=== PATIENT | male | born 1960 | race Hispanic/Latino ===

== ENCOUNTER 2017-12-10 13:58 | Emergency (ER) | payer MEDICARE ==
[2017-12-10 16:22] LABS: #Basophils 0.1 thou/uL (0.0-0.2); #Eosinphils 0.2 thou/uL (0.0-0.7); #Lymphocytes 1.5 thou/uL (1.20-3.40); #Monocytes 0.6 thou/uL (0.11-0.59); #Neutrophils 4.6 thou/uL (1.40-6.50); %Basophils 0.9 % (0.0-1.0); %Eosinophils 2.2 % (0.0-10.0); %Lymphocytes 21.9 % (21.0-51.0); %Monocytes 9.1 % (0.0-10.0); %Neutrophils 65.9 % (42.0-75.0); Hemoglobin 14.4 g/dL (14.0-18.0); Mean Corpuscular HGB CONC 34.5 g/dL (32.0-36.0); Mean Corpuscular Hemoglobin 29.2 pg (27.0-31.0); Mean Corpuscular Volume 84.5 fl (80.0-94.0); Mean Platelet Volume 9.2 fL (7.4-10.4); Platelet Count 180 thou/uL (130-400); RBC Distribution Width 13.3 % (11.5-14.5); Red Blood Cell (RBC) Count 4.94 mill/uL (4.70-6.10)
[2017-12-10 16:29] LABS: INR-International Normal Ratio 3.9; PTT 45.6 SEC (22.9-36.1); Prothrombin Time 39.9 SEC (12.0-14.7)
[2017-12-10 16:50] LABS: Anion Gap 11 mmol/L (10-20); BUN (Urea Nitrogen) 13 mg/dL (8.4-25.7); Calc. Creatinine Clearance 0 mL/min (70-130); Calcium 9.4 mg/dL (7.8-10.44); Carbon Dioxide 24 mmol/L (22-29); Chloride 105 mmol/L (98-107); Estimated GFR-MDRD Greater than 90; Glucose 99 mg/dL (70-105); Potassium 4.1 mmol/L (3.5-5.1); Sodium 136 mmol/L (136-145)
--- NOTE | 2017-12-10 17:39 | ULT ---
ULTRASOUND WITH DOPPLER DUPLEX VENOUS LOWER EXTREMITY LEFT CPT: 34645 ICD-10-PCS: B54D 12/10/17 HISTORY: Pain and edema/ecchymosis. TECHNIQUE: Color flow Doppler, spectral waveform analysis of pulsed Doppler, and case-scale imaging with sergo angelic and augmentation, were used to evaluate the left common femoral, femoral, popliteal, posterior t ibial, and superficial femoral, veins; and the proximal portions of the profunda femoral and greater saphenous, veins. FINDINGS: There is appropriate flow within the imaged deep vein system of the left lower extremity. [employer] reports limited compressibility at the site of the distal left femoral vein, although no filling def ect is seen on the doppler flow images. There is soft tissue edema. No localizable fluid collection identified. IMPRESSION: No definite evidence for DVT. Limited compressibility of the distal left femoral vein as above. No focal fluid collection. There is soft tissue edema. Correlate clinically. POS: TPC
== END 2017-12-10 17:40 | disposition home or self-care (01) ==
LOC: ERS 13:58
DX: S86.912A Strain of unspecified muscle(s) and tendon(s) at lower leg level, left leg, initial encounter (principal); R79.1 Abnormal coagulation profile; I48.91 Unspecified atrial fibrillation; Z79.84 Long term (current) use of oral hypoglycemic drugs; Z79.899 Other long term (current) drug therapy; Z79.01 Long term (current) use of anticoagulants; X58.XXXA Exposure to other specified factors, initial encounter
CPT/HCPCS: 36415; 80048; 85025; 85610; 85730

== ENCOUNTER 2018-05-04 13:57 | Inpatient (IN) | payer MEDICARE ==
[2018-05-04] MEDS ORDERED: Nitroglycerin 0.4 MG TAB (25 Tab Bottle) ONE (14:30)
[2018-05-04 14:31] LABS: #Eosinphils 0.1 thou/uL (0.0-0.7); #Lymphocytes 1.3 thou/uL (1.20-3.40); #Monocytes 0.5 thou/uL (0.11-0.59); #Neutrophils 3.9 thou/uL (1.40-6.50); %Basophils 0.8 % (0.0-1.0); %Eosinophils 1.6 % (0.0-10.0); %Lymphocytes 22.3 % (21.0-51.0); %Monocytes 8.3 % (0.0-10.0); Mean Corpuscular HGB CONC 34.7 g/dL (32.0-36.0); Mean Corpuscular Hemoglobin 28.6 pg (27.0-31.0); Mean Corpuscular Volume 82.4 fl (80.0-94.0); Platelet Count 161 thou/uL (130-400); RBC Distribution Width 12.8 % (11.5-14.5); Red Blood Cell (RBC) Count 5.26 mill/uL (4.70-6.10); White Blood Cell (WBC) Count 5.8 thou/uL (4.8-10.8)
[2018-05-04 14:31] LABS: Bilirubin Negative (Negative); Blood, Urine Negative (Negative); Clarity CLEAR (Clear); Glucose, Urine (Dipstick) 250 mg/dL (Negative); Leukocyte Negative (Negative); Nitrite Negative (Negative); Protein, Urine (Dipstick) Negative (Neg-Trace); Specific Gravity, Urine 1.018 (1.002-1.036)
[2018-05-04 14:58] LABS: ALT (SGPT) 81 U/L (8-55); AST (SGOT) 63 U/L (5-34); Albumin 4.3 g/dL (3.5-5.0); Alkaline Phosphatase 94 U/L (40-150); Anion Gap 15 mmol/L (10-20); BUN (Urea Nitrogen) 18 mg/dL (8.4-25.7); Bilirubin, Total 0.8 mg/dL (0.2-1.2); CK (CPK) 125 U/L (30-200); Calc. Creatinine Clearance 0 mL/min (70-130); Calcium 9.7 mg/dL (7.8-10.44); Carbon Dioxide 22 mmol/L (22-29); Chloride 105 mmol/L (98-107); Estimated GFR-MDRD Greater than 90; Globulin 3.1 g/dL (2.4-3.5); Glucose 144 mg/dL (70-105); Lipase 28 U/L (8-78); Potassium 4.1 mmol/L (3.5-5.1); Protein, Total 7.4 g/dL (6.0-8.3); Sodium 138 mmol/L (136-145)
[2018-05-04 14:59] LABS: Troponin I Less than 0.010 ng/mL (< 0.028)
--- NOTE | 2018-05-04 15:00 | RAD ---
PORTABLE CHEST: HISTORY: Chest, back, and left shoulder pain. COMPARISON: 02/26/11 exam. FINDINGS: Heart size is within normal limits. Mediastinal structures appear unremarkable. The lungs are clear of infiltrates. IMPRESSION: No active intrathoracic disease. POS: H
[2018-05-04 15:21] LABS: INR-International Normal Ratio 2.6; PTT 37.9 SEC (22.9-36.1)
[2018-05-04 17:20] VITALS: BMI 31.7
[2018-05-04 17:41] LABS: Troponin I Less than 0.010 ng/mL (< 0.028)
[2018-05-04] MEDS: Sodium Chloride 0.9% 1,000 ML IV SCH (18:19)
[2018-05-04] MEDS ORDERED: HumaLOG 300 UNITS/3 ML VIAL SC PRN (19:38)
[2018-05-04 20:26] LABS: Troponin I Less than 0.010 ng/mL (< 0.028)
[2018-05-04] MEDS: Metoprolol Tartrate 25 MG TAB PO SCH (21:18)
[2018-05-04] MEDS: Simvastatin 40 MG TAB PO SCH (21:18)
--- NOTE | 2018-05-05 04:30 | HP ---
PRIMARY CARE PHYSICIAN: Dr. Negro Guzman. CHIEF COMPLAINT: Episode of chest pain. HISTORY OF PRESENT ILLNESS: This is a 58-year-old male patient of Dr. Negro Guzman's with a history of type 2 diabetes, atrial fibrillation, hypertension, hyperlipidemia, who presented to the emergency department after an episode of chest pain and shortness of breath. As the patient states a s well as his that the patient has been in usual state of health. He was sitting at home, watch ing TV this afternoon about 01:30 when he jumped up to go to the bathroom with nausea and vomiting. He did throw up one time. The patient admitted for chest pain and shortness of breath. The cla ims that he was clammy. They called EMS. Once the paramedics arrived, they gave him a dose of nitro glycerin and his symptoms resolved spontaneously. He has not had any further symptoms since that amos e. Of note, he had a similar episode of chest pain in 01/2017. He was admitted at that time, he was seen by Cardiology as well. He ruled out for an LA at that time and had negative stress test and wa s discharged home in good condition. The patient is typically followed by Dr. Zamora and Dr. Haley for his atrial fibrillation. The and patient state that he is usually well controlled. Looking at his notes, he does not seem to be compliant with follow ups with Dr. Guzman as his last appointment was in 04/2017. However, the patient now feels like he is back at his baseline. He is being admitte d for further evaluation and risk stratification due to his episode of chest pain consistent with uns table angina and his noncompliance. PAST MEDICAL HISTORY: Type 2 diabetes, hypertension, hyperlipidemia, hearing loss, atrial fibrillati on/flutter was diagnosed in 2006. PAST SURGICAL HISTORY: 1. Appendectomy. 2. Cardiac ablation in 2010. 3. Cardiac catheterization in 2014. FAMILY HISTORY: Mother and father with diabetes and heart disease. SOCIAL HISTORY: He is , retired from [employer], now collecting disability due to hi s atrial fibrillation. He has 3 grandkids. He quit smoking over 20 years ago. MEDICATIONS: Lisinopril 10 mg daily, metformin 1000 mg b.i.d., metoprolol 25 mg b.i.d., simvastatin 40 mg daily, warfarin 4 mg every other day, 5 mg every other day. REVIEW OF SYSTEMS: As per the history of present illness, denies any recent fevers, chills, or recen t upper respiratory symptoms. HEENT: Denies headache, positive for hardness of hearing, which is ch ronic. Cardiovascular: As per the history of present illness, he denies any palpitations. Pulmonar y: Denies cough or shortness of breath at this time. Gastrointestinal: Nausea has resolved. No di arrhea, no constipation. Denies melena or hematochezia. Genitourinary: Denies dysuria or hematuria . Neurologic: Denies seizures, syncope. PHYSICAL EXAMINATION: VITAL SIGNS: Temperature 98.1, pulse of 65, respirations 16, blood pressure 134/65, pulse ox is 96% on room air. GENERAL: He is awake and alert, in no acute distress. HEENT: He is hard of hearing. Mucosa is moist. NECK: Supple. No JVD, no bruits. HEART: Regular rate and rhythm without murmurs. LUNGS: Clear bilaterally. ABDOMEN: Obese, soft, nontender, nondistended. No hepatosplenomegaly. EXTREMITIES: No clubbing, cyanosis, or edema. 2+ peripheral pulses bilaterally. NEUROLOGIC: Cranial nerves II through XII are grossly intact. LABORATORY AND X-RAY FINDINGS: Sodium 138, potassium 4.1, chloride 105, CO2 of 22, BUN and creatinin e 18 and 0.8. Serum glucose of 144. GFR greater than 90. AST and ALT are elevated at 63 and 81, al kaline phosphatase was normal. Cardiac enzymes are negative x3. Lipase of 28. INR 2.6. White bloo d cell count 5.8, hemoglobin and hematocrit 15 and 43.4, platelets of 161. Chest x-ray shows no acti ve disease. EKG reveals atrial fibrillation, rate controlled ventricular rate of 78. ASSESSMENT AND PLAN: This is a 58-year-old gentleman with atrial fibrillation on anticoagulation, ty pe 2 diabetes, hypertension, hyperlipidemia, now with episode of chest pain. Agree with admission to telemetry with rule-out myocardial infarction protocol. Consult Cardiology for further risk stratif ication for a repeat stress test versus cardiac catheterization. 1. Atrial fibrillation. Again, rate controlled. We will continue anticoagulation. 2. Type 2 diabetes. We will check A1c. Continue his oral meds at this time as well as insulin slid ing scale. 3. Transaminitis, likely secondary to fatty liver. We will check a liver ultrasound.
[2018-05-05] MEDS: Sodium Chloride 0.9% 1,000 ML IV SCH ×2 (05:08→13:56)
[2018-05-05 05:58] LABS: Cardiac Risk 4.6 (Less than 4.5)
[2018-05-05 06:05] LABS: ALT (SGPT) 60 U/L (8-55); AST (SGOT) 39 U/L (5-34); Albumin 3.6 g/dL (3.5-5.0); Alkaline Phosphatase 84 U/L (40-150); Bilirubin, Direct 0.2 mg/dL (0.1-0.3); Bilirubin, Total 0.6 mg/dL (0.2-1.2); Protein, Total 6.1 g/dL (6.0-8.3)
[2018-05-05 08:16] LABS: INR-International Normal Ratio 2.7; Prothrombin Time 30.2 SEC (12.0-14.7)
[2018-05-05] MEDS: metFORMIN 500 MG TAB PO SCH ×2 (08:18→16:00)
[2018-05-05] MEDS: Lisinopril 10 MG TAB PO SCH (08:18)
[2018-05-05] MEDS: Metoprolol Tartrate 25 MG TAB PO SCH ×2 (08:18→20:05)
[2018-05-05] MEDS: Niacin 500 MG TAB PO SCH (08:18)
--- NOTE | 2018-05-05 08:40 | PRG ---
DATE OF SERVICE: 05/05/2018 TIME: 08:00 a.m. SUBJECTIVE: The patient was admitted last night for acute onset of chest pain, which lasted several minutes while watching TV. He presented to the ER where he was given nitroglycerin and the chest matthew n was resolved. Since then he has had no recurrent chest pain. He is feeling much better at this ti me. It has been over a year since he has seen me in the office. He does have a history of diabetes, hypertension, hyperlipidemia as well as chronic atrial fibrillation. OBJECTIVE: VITAL SIGNS: Temperature 97.6, pulse 53, respirations 18, blood pressure 103/61, pulse ox 95, blood pressure 130/68. HEART: Irregular, rate controlled. LUNGS: Clear. ABDOMEN: Soft. EXTREMITIES: With no edema. LABORATORY DATA: Blood sugars 130, 114. Liver functions normal. Triglycerides 139. Cholesterol 15 6. Chest x-ray negative. ASSESSMENT: 1. Chest pain, rule out myocardial infarction. Cardiac enzymes negative. 2. Chronic atrial fibrillation, rate controlled. 3. Hypertension. 4. Hyperlipidemia. 5. Diabetes. PLAN: 1. Cardiolite stress test today. 2. Consult Dr. Zamora. 3. We will continue to follow.
--- NOTE | 2018-05-05 09:18 | ULT ---
SONOGRAM ABDOMEN COMPLETE: History: Abdominal pain. Abnormal liver function tests. FINDINGS: Gallbladder has a normal appearance. Common duct is 0.4 cm. Liver is diffusely echogenic. No focal ma ss or intrahepatic biliary dilatation. No free fluid. The spleen, kidneys, and visualized portions of the abdominal aorta and pancreas are unremarkable. IMPRESSION: 1. No evidence of gallstones or biliary obstruction. 2. Hepatosteatosis. POS: TPC
[2018-05-05] MEDS ORDERED: ADENOSINE 60 MG/20 ML VIAL ONE (12:10)
[2018-05-05] MEDS ORDERED: HumaLOG 300 UNITS/3 ML VIAL SC PRN (12:29)
--- NOTE | 2018-05-05 12:54 | NM ---
NUCLEAR MEDICINE CARDIAC PERFUSION EXAMINATION WITH EJECTION FRACTION: HISTORY: A 58-year-old male with chest pain. History of cardiac catheterization, status post ablation. COMPARISON: 02/09/2017 TECHNIQUE: A single day nuclear medicine cardiac perfusion examination was performed. Rest images were obtained using 10 millicuries of technetium 99m sestamibi. Stress images were obtained using 27 millicuries of technetium 99m and adenosine. FINDINGS: There is a small sized, moderate intensity reversible perfusion defect of the anterior wall. No othe r reversible perfusion defects are seen. Gated images show normal wall motion with an ejection fract ion of greater than 70%. EDV is 91 mL. LHR is 0.4. TID is 1.2. IMPRESSION: Possible anterior wall ischemia. POS: EITAN
[2018-05-05] MEDS ORDERED: Phytonadione 10 MG/ML AMP PO SCH (15:45)
[2018-05-05] MEDS: Aspirin 81 mg Enteric Coated Tablet PO SCH (16:02)
[2018-05-05] MEDS ORDERED: Warfarin Sodium 5 MG TAB PO SCH (17:00)
[2018-05-05] MEDS ORDERED: Enoxaparin Sodium 60 MG/0.6 ML SYRINGE SC SCH ×2 (20:00→21:00)
[2018-05-05] MEDS: Simvastatin 40 MG TAB PO SCH (20:05)
--- NOTE | 2018-05-05 20:16 | CON ---
DATE OF CONSULTATION: 05/05/2018 REASON FOR CONSULTATION: Chest pain and abnormal stress test. HISTORY OF PRESENT ILLNESS: Mr. Olivares is a 58-year-old gentleman, a patient of Dr. Francisco Joshi, admitted to the hospital yesterday with chest pain. Mr. Olivares describes the pain yesterday is sharp, it is in the midsternal area and slightly to the left of the mid sternum and he came here. The pain was ultimately relieved with medications here. The patient's cardiac enzymes were negative. Stress test showed some evidence of ischemia. PAST MEDICAL HISTORY: History of supraventricular tachycardia, also has a history of atrial fibrilla tion, is on Coumadin. Also has history of hypercholesterolemia and hypertension. MEDICATIONS PRIOR TO ADMISSION: 1. Lisinopril 10 mg a day. 2. Metformin. 3. Metoprolol 100 mg a day. 4. Simvastatin. 5. Coumadin. ALLERGIES: None known. SOCIAL HISTORY: No alcohol or tobacco. He has a very supportive . REVIEW OF SYSTEMS: The patient is very hard of hearing, but the review of systems appears to be the following. Constitutional: No significant weight gain or loss. Vision: No changes. Hearing: No changes. Pulmonary: No cough or wheezing. Gastrointestinal: No nausea, vomiting, or diarrhea. Sk in: No rashes. Neurologic: No unilateral weakness or numbness. Psychiatric: No unusual depressio n or anxiety. Hematologic: No unusual bruising. Genitourinary: No burning with urination. The patient is very hard of hearing and it is a chronic problem. PHYSICAL EXAMINATION: GENERAL: This is a pleasant 58-year-old gentleman in no distress. VITAL SIGNS: Blood pressure is 125/74, pulse 70 and it is regular. HEENT: Eyes: Sclerae nonicteric. Mouth: Mucous membranes moist. NECK: Supple, no lymphadenopathy. LUNGS: Clear. No wheezing, rales or rhonchi. CARDIAC: Normal S1, normal S2. There is no murmur, rub or gallop. ABDOMEN: Soft, nontender, no hepatosplenomegaly. EXTREMITIES: Warm and dry. No clubbing or cyanosis. There is no edema. LABORATORY AND X-RAY FINDINGS: EKG sinus rhythm. Cardiac enzymes were negative. Stress test, there is moderately large area of ischemia in the lateral wall and a small amount of ischemia in the dista l septum in apex. ASSESSMENT: 1. Chest pain somewhat atypical for angina. 2. Abnormal stress test. 3. Risk factors for coronary disease. PLAN: 1. Atrial fibrillation with therapeutic Coumadin. INR is 2.7. 2. At this time, we would recommend cardiac catheterization and we will do the followin. We will give low dose vitamin K 5 mg orally. He was given one dose of enoxaparin tonight. 2. Aspirin. 3. See what the INR is tomorrow. If it is acceptable, consideration for radial artery catheterizati on to be done by Dr. Ellis. I have not made. The patient may need to wait another day. I will be out tomorrow. Dr. Ellis will be seeing the patient or Dr. Nuñez tomorrow.
[2018-05-06 06:05] LABS: Hemoglobin 13.2 g/dL (14.0-18.0); Platelet Count 144 thou/uL (130-400)
[2018-05-06 06:13] LABS: INR-International Normal Ratio 1.4; Prothrombin Time 17.8 SEC (12.0-14.7)
--- NOTE | 2018-05-06 08:14 | PRG ---
DATE OF SERVICE: 05/06/2018 SUBJECTIVE: The patient is doing well. No complaints of any chest pain or shortness of breath. OBJECTIVE: VITAL SIGNS: Temperature 97.9, pulse 57, respirations 24, pulse ox 93, blood pressure 122/67. HEART: Regular rate and rhythm. LUNGS: Clear. ABDOMEN: Soft. EXTREMITIES: With no edema. LABORATORY: Blood sugar 127, 106, 142, creatinine 0.8. INR 1.4, H&H 13 and 39, platelet of 144. ASSESSMENT: 1. Atypical chest pain. 2. Abnormal stress test. 3. Risk factors for coronary artery disease. 4. Atrial fibrillation, chronic. 5. Hypertension. 6. Hyperlipidemia. 7. Diabetes. PLAN: 1. Cardiac catheterization today or tomorrow per Cardiology. 2. Discussed with patient the possibility of stent placement versus coronary artery bypass grafting depending on the results of the cardiac catheterization. 3. We will continue to follow.
[2018-05-06] MEDS: Lisinopril 10 MG TAB PO SCH (08:20)
[2018-05-06] MEDS: Metoprolol Tartrate 25 MG TAB PO SCH (08:20)
[2018-05-06] MEDS: Aspirin 81 mg Enteric Coated Tablet PO SCH (08:20)
[2018-05-06] MEDS: Niacin 500 MG TAB PO SCH (08:21)
[2018-05-06] MEDS ORDERED: diphenhydrAMINE 50 MG CAP PO PRN (09:29)
[2018-05-06] MEDS ORDERED: Communication Order-Pharmacy FS SCH (09:45)
[2018-05-06] MEDS ORDERED: Sodium Chloride 0.9% 1,000 ML IV SCH ×2 (09:45→10:45)
--- NOTE | 2018-05-06 09:52 | PRG ---
DATE OF SERVICE: 05/06/2018 SUBJECTIVE: Mr. Olivares is doing well, no current complaints. No chest pain or pressure noted. He di d receive a medicine early this morning and had itching. He was given Benadryl. He states he is doi ng well. PHYSICAL EXAMINATION: VITAL SIGNS: Blood pressure 107/56, pulse 87, temperature 98.1. LUNGS: Clear to auscultation. HEART: Regular rate and rhythm. ABDOMEN: Soft, nontender, nondistended. EXTREMITIES: No edema. IMPRESSION: 1. Abnormal stress study. 2. Chest pain. RECOMMENDATIONS: The patient had ischemia noted to the anterior wall. Coronary angiography was snow mmended. Patient's INR this morning was 1.4. We will proceed with coronary angiography plus PCI. I discussed the procedure in full detail with Mr. Olivares. The risks included but not limited to the fo llowing: , stroke, MA, need for emergency surgery, loss of limb, bleeding, and infection, as we ll as a reaction to the dye causing kidney failure and needing long-term dialysis. Other risks includ e acute stent thrombosis and restenosis, vessel dissection, perforation, need for emergency surgery i n addition to distal embolization causing chronic foot discomfort as well as amputation. All questio ns were answered. Given the above, patient agreed to proceed with the above procedure. We will proc eed with a bare metal stent given that he is on Coumadin. Further recommendations pending the above.
[2018-05-06] MEDS ORDERED: Lidocaine 1% (PF) 30 ML VIAL ONE (09:57)
[2018-05-06] MEDS ORDERED: Heparin 10,000 UNITS/1 ML VIAL ONE (09:59)
[2018-05-06] MEDS ORDERED: Enalaprilat Dihydrate 1.25 MG/ML VIAL ONE (09:59)
[2018-05-06] MEDS ORDERED: Verapamil 5 MG/2 ML VIAL ONE (09:59)
[2018-05-06] MEDS ORDERED: Nitroglycerin 100MG/250ML BOT 250 ML ONE (09:59)
[2018-05-06] MEDS ORDERED: Hydrocortisone Sod Succ/PF 100 mg/2 ml Vial ONE (10:12)
[2018-05-06] MEDS ORDERED: diphenhydrAMINE 50 MG/ML VIAL ONE (10:21)
[2018-05-06] MEDS ORDERED: Acetaminophen/Codeine 30-300mg Tablet PO PRN ×2 (10:35)
[2018-05-06] MEDS ORDERED: Nitroglycerin 0.4 MG TAB (25 Tab Bottle) SL PRN (10:35)
[2018-05-06] MEDS ORDERED: traMADol HCl 50 MG TAB PO PRN (10:35)
[2018-05-06] MEDS ORDERED: Sodium Chloride 0.9% 200 ML IV PRN (10:45)
[2018-05-06] MEDS ORDERED: Iopamidol 370 76% 100 ML VIAL ONE (12:18)
[2018-05-06 12:24] VITALS: TEMP 97.6
[2018-05-06] MEDS ORDERED: Adenosine 6 MG/2 ML VIAL ONE (13:46)
[2018-05-06 13:52] VITALS: BP 97/55
--- NOTE | 2018-05-07 01:00 | DIS ---
DATE OF ADMISSION: 05/05/2018 DATE OF DISCHARGE: 05/06/2018 DISCHARGE DIAGNOSES: 1. Atypical chest pain. 2. Abnormal stress test. 3. Risk factors for coronary artery disease. 4. Chronic atrial fibrillation. 5. Hypertension. 6. Hyperlipidemia. 7. Diabetes. PROCEDURE: Cardiolite stress test abnormal, cardiac catheterization unremarkable. CONSULTANTS: 1. Dr. Ellis. 2. Dr. Sr. BRIEF HISTORY: This is a 58-year-old Latin-[place] male with history of chronic atrial fibrillation who presents with atypical chest pain and shortness of breath. He was doing well until the day of a dmission when he is watching TV and suddenly developed nausea, vomiting, and substernal chest pain, n onradiating. He became diaphoretic and presented to the emergency room. HOSPITAL COURSE: A Cardiolite stress test was obtained, which was found to be remarkable. There was an area of possible ischemia. The patient was then taken to the cardiac catheterization lab by Dr. Ellis and his vessels were found to be unremarkable. The patient had no further recurrent chest pain while in the hospital. He is now ready for discharge. He will be restarted on his Coumadin and will follow up in the office in one week. White count 5.8, H and H 13 and 39. Cholesterol 179, tri glyceride 156. Electrolytes normal. Creatinine 0.8, BUN 18. Liver function tests slightly elevated . Chest x-ray was negative. Abdominal ultrasound negative.
[2018-05-07] MEDS ORDERED: Warfarin Sodium 2 MG TAB PO SCH (17:00)
== END 2018-05-06 15:20 | disposition home or self-care (01) | DRG 287 ==
LOC: ERS 13:57 → 2SW 16:36 → OBSVTOIN 05-05 16:32
PROVIDERS: ADMIT Family Medicine; ATTEND Family Medicine
PROC: 4A023N7 Measurement of Cardiac Sampling and Pressure, Left Heart, Percutaneous Approach (ICD-10-PCS; principal; 2018-05-05)
PROC: B2111ZZ Fluoroscopy of Multiple Coronary Arteries using Low Osmolar Contrast (ICD-10-PCS; 2018-05-05)
PROC: B2151ZZ Fluoroscopy of Left Heart using Low Osmolar Contrast (ICD-10-PCS; 2018-05-05)
DX: R07.89 Other chest pain (principal); I48.2 Chronic atrial fibrillation; Z79.01 Long term (current) use of anticoagulants; H91.90 Unspecified hearing loss, unspecified ear; I10 Essential (primary) hypertension; E78.5 Hyperlipidemia, unspecified; E11.9 Type 2 diabetes mellitus without complications; R94.39 Abnormal result of other cardiovascular function study
CPT/HCPCS: 36415; 36416; 71045; 76700; 78452; 80053; 80061; 80076; 81003; 82550; 82553; 83690; 83880; 84484; 85014; 85018; 85025; 85049; 85610; 85730; 90471; 90732; 93005; 93017; 93454; 96360; 96361; A9500; C1769; G0009; J0153; J1200; J1644; J1650; J1720; J2001; J3430

== ENCOUNTER 2019-03-09 21:43 | Emergency (ER) | payer MEDICARE | END 2019-03-09 22:12 | disposition home or self-care (01) | LOC: ERS 21:43 | DX: L03.113 Cellulitis of right upper limb (principal); E11.9 Type 2 diabetes mellitus without complications; E78.5 Hyperlipidemia, unspecified; I10 Essential (primary) hypertension; I48.91 Unspecified atrial fibrillation; Z87.891 Personal history of nicotine dependence | CPT/HCPCS: 99282 ==

== ENCOUNTER 2019-03-15 08:51 | Emergency (ER) | payer MEDICARE ==
--- NOTE | 2019-03-15 10:21 | RAD ---
LEFT SHOULDER 3 VIEWS: HISTORY: Left shoulder pain. FINDINGS: There are degenerative changes in the acromioclavicular joint. No acute fracture, dislocation, or le[place] destruction is seen. POS: TPC
== END 2019-03-15 10:25 | disposition home or self-care (01) ==
LOC: ERS 08:51
DX: M25.512 Pain in left shoulder (principal); I48.91 Unspecified atrial fibrillation; E11.9 Type 2 diabetes mellitus without complications; E78.5 Hyperlipidemia, unspecified; I10 Essential (primary) hypertension; Z87.891 Personal history of nicotine dependence; Z79.01 Long term (current) use of anticoagulants; Z79.82 Long term (current) use of aspirin; Z79.84 Long term (current) use of oral hypoglycemic drugs

== ENCOUNTER 2019-06-18 21:07 | Emergency (ER) | payer MEDICARE ==
--- NOTE | 2019-06-18 21:38 | RAD ---
EXAM: RIGHT FOOT THREE VIEWS: 06/18/19 HISTORY: Injury. Soft tissue swelling of the fifth toe is noted with an oblique essentially nondisplaced fract ure through the proximal phalanx. Mild degenerative change. IMPRESSION: Essentially nondisplaced oblique fracture proximal phalanx fifth toe. POS: EITAN
== END 2019-06-18 23:22 | disposition home or self-care (01) ==
LOC: ERS 21:07
DX: S92.514A Nondisplaced fracture of proximal phalanx of right lesser toe(s), initial encounter for closed fracture (principal); I48.91 Unspecified atrial fibrillation; E11.9 Type 2 diabetes mellitus without complications; E78.5 Hyperlipidemia, unspecified; I10 Essential (primary) hypertension; Z87.891 Personal history of nicotine dependence; Z79.82 Long term (current) use of aspirin; Z79.01 Long term (current) use of anticoagulants; Z79.84 Long term (current) use of oral hypoglycemic drugs; Z79.899 Other long term (current) drug therapy; W20.8XXA Other cause of strike by thrown, projected or falling object, initial encounter

== ENCOUNTER 2019-08-27 22:49 | Emergency (ER) | payer MEDICARE ==
[2019-08-27] MEDS ORDERED: Acetaminophen 500 MG TAB ONE (23:08)
--- NOTE | 2019-08-27 23:45 | RAD ---
Right knee 4 views: HISTORY: Painful knot below knee. FINDINGS: There is a somewhat exophytic spur at the level of the anterior tibial tubercle with overlying soft t issue swelling and soft tissue of the patellar tendon. This certainly could represent patellar tendinitis or possibly patellar tendon injury. No fracture or dislocation. IMPRESSION: Focal soft tissue swelling of the inferior patellar tendon and overlying the anterior tibial tuberosi ty with associated somewhat exophytic anteriorly extending bony spur. No fracture or dislocation or other acute osseous abnormality. Consider follow-up nonemergent MRI.
== END 2019-08-27 23:59 | disposition home or self-care (01) ==
LOC: ERS 22:49
DX: L03.115 Cellulitis of right lower limb (principal); I49.9 Cardiac arrhythmia, unspecified; I48.91 Unspecified atrial fibrillation; E11.9 Type 2 diabetes mellitus without complications; E78.5 Hyperlipidemia, unspecified; E78.00 Pure hypercholesterolemia, unspecified; I10 Essential (primary) hypertension; Z87.891 Personal history of nicotine dependence; Z79.01 Long term (current) use of anticoagulants; Z79.84 Long term (current) use of oral hypoglycemic drugs; Z79.82 Long term (current) use of aspirin; Z79.899 Other long term (current) drug therapy

== ENCOUNTER 2019-12-22 16:37 | Emergency (ER) | payer MEDICARE | END 2019-12-22 18:30 | disposition home or self-care (01) | LOC: ERS 16:37 | DX: L03.211 Cellulitis of face (principal); I48.91 Unspecified atrial fibrillation; E11.9 Type 2 diabetes mellitus without complications; E78.5 Hyperlipidemia, unspecified; E78.00 Pure hypercholesterolemia, unspecified; I10 Essential (primary) hypertension; Z87.891 Personal history of nicotine dependence | CPT/HCPCS: 99283 ==

== ENCOUNTER 2021-10-07 14:53 | Emergency (ER) | payer MEDICARE ==
[2021-10-07] MEDS ORDERED: Ketorolac Tromethamine 30 MG/ML VIAL ONE (15:30)
== END 2021-10-07 15:40 | disposition home or self-care (01) ==
LOC: ERS 14:53
DX: K02.9 Dental caries, unspecified (principal); R51.9 Headache, unspecified; R68.84 Jaw pain; E11.9 Type 2 diabetes mellitus without complications; I10 Essential (primary) hypertension; Z87.891 Personal history of nicotine dependence
CPT/HCPCS: 96372; 99282; J1885

== ENCOUNTER 2021-11-01 18:53 | Emergency (ER) | payer MEDICARE ==
[2021-11-01 19:41] LABS: Mean Corpuscular Hemoglobin 24.4 pg (27.0-31.0); Mean Corpuscular Volume 74.2 fL (78.0-98.0); RBC Distribution Width 17.5 % (11.5-14.5); Red Blood Cell (RBC) Count 4.91 mill/uL (4.70-6.10); White Blood Cell (WBC) Count 4.8 thou/uL (4.8-10.8)
[2021-11-01 19:56] LABS: ALT (SGPT) 148 U/L (8-55); AST (SGOT) 182 U/L (5-34); Albumin 3.7 g/dL (3.4-4.8); Alkaline Phosphatase 203 U/L (40-110); Anion Gap 11 mmol/L (10-20); BUN (Urea Nitrogen) 15 mg/dL (8.4-25.7); Bilirubin, Total 0.9 mg/dL (0.2-1.2); Calc. Creatinine Clearance 0 mL/min (70-130); Calcium 8.9 mg/dL (7.8-10.44); Carbon Dioxide 26 mmol/L (23-31); Chloride 99 mmol/L (98-107); Globulin 3.9 g/dL (2.4-3.5); Glucose 146 mg/dL (80-115); Lipase 31 U/L (8-78); Potassium 3.4 mmol/L (3.5-5.1); Protein, Total 7.6 g/dL (5.8-8.1); Sodium 133 mmol/L (136-145)
[2021-11-01 20:03] LABS: #Lymphocytes 0.7 thou/uL (1.20-3.40); #Monocytes 0.6 thou/uL (0.11-0.59); #Neutrophils 3.6 thou/uL (1.40-6.50); %Basophils 0.4 % (0.0-1.0); %Eosinophils 0.3 % (0.0-10.0); %Lymphocytes 13.5 % (21.0-51.0); %Monocytes 12.2 % (0.0-10.0); %Neutrophils 73.6 % (42.0-75.0); Anisocytosis SLIGHT = 6-15 cells (100X) (0-5/hpf); Elliptocytes SLIGHT = 2-5 cells (100X) (0-1/hpf); MDiff Complete? YES; Mean Platelet Volume 7.4 fL (7.4-10.4); Microcytosis SLIGHT = 6-15 cells (100X) (0-5/hpf); Platelet Count 136 thou/uL (130-400)
[2021-11-01 20:14] LABS: SARS-CoV-2 NAA Rapid Test Not Detected (NotDetected)
[2021-11-01 20:56] LABS: Bilirubin Negative (Negative); Blood, Urine Trace (Negative); Clarity Clear (Clear); Glucose, Urine (Dipstick) 500 mg/dL (Negative); Ketone, Urine Negative (Negative); Leukocyte 250 Leu/uL (Negative); Nitrite 2+ (Negative); Protein, Urine (Dipstick) 10 mg/dL (Neg-Trace); RBC/HPF 0-3 HPF (0-3); Specific Gravity, Urine 1.022 (1.002-1.036); Squamous Epithelial None Seen HPF (0-3)
[2021-11-01 21:04] LABS: Bacteria/HPF 2+ HPF (None Seen)
== END 2021-11-01 22:48 | disposition home or self-care (01) ==
LOC: ERS 18:53
DX: N39.0 Urinary tract infection, site not specified (principal); K52.9 Noninfective gastroenteritis and colitis, unspecified; Z20.822 Contact with and (suspected) exposure to COVID-19; I10 Essential (primary) hypertension; E78.5 Hyperlipidemia, unspecified; E78.00 Pure hypercholesterolemia, unspecified; E11.9 Type 2 diabetes mellitus without complications; I48.91 Unspecified atrial fibrillation; Z79.84 Long term (current) use of oral hypoglycemic drugs; Z79.899 Other long term (current) drug therapy; Z87.891 Personal history of nicotine dependence
CPT/HCPCS: 0240U; 76705; 80053; 83690; 85025; 99284; 81003; 81015

== ENCOUNTER 2022-11-20 10:37 | Outpatient (CLI) | payer MEDICARE ==
[~2022-11-20 10:37] MED LIST: Regadenoson 0.4 MG/5 ML SYRINGE ONE
== END 2022-11-20 10:38 | disposition home or self-care (01) ==
LOC: NM 10:37
PROVIDERS: ATTEND Nurse Practitioner Family
DX: R07.9 Chest pain, unspecified (principal); I25.9 Chronic ischemic heart disease, unspecified
CPT/HCPCS: 78452; 93017; A9500; J2785

== ENCOUNTER 2022-11-21 12:23 | Outpatient (CLI) | payer MEDICARE | END 2022-11-21 12:24 | disposition home or self-care (01) | LOC: ULT 12:23 | PROVIDERS: ATTEND Nurse Practitioner Family | DX: R06.02 Shortness of breath (principal); I08.1 Rheumatic disorders of both mitral and tricuspid valves | CPT/HCPCS: 93306 ==

== ENCOUNTER 2024-10-15 00:14 | Observation (INO) | payer MEDICARE, OTHER ==
[2024-10-15 00:56] LABS: Hematocrit 41.7 % (42.0-52.0); Hemoglobin 13.1 g/dL (14.0-18.0); Mean Corpuscular HGB CONC 31.4 g/dL (32.0-36.0); Mean Corpuscular Hemoglobin 23.4 pg (27.0-31.0); Mean Corpuscular Volume 74.3 fL (78.0-98.0); Mean Platelet Volume 11.3 fL (7.4-10.4); Platelet Count 204 10x3/uL (130-400); RBC Distribution Width 17.2 % (11.5-14.5); Red Blood Cell (RBC) Count 5.61 mill/uL (4.70-6.10)
[2024-10-15 01:02] LABS: INR-International Normal Ratio 2.7; Prothrombin Time 29.1 sec (12.0-14.7)
[2024-10-15 01:03] LABS: PTT 32.9 sec (22.9-36.1)
[2024-10-15 01:10] LABS: ALT (SGPT) 57 U/L (8-55); AST (SGOT) 52 U/L (5-34); Albumin 4.2 g/dL (3.4-4.8); Alkaline Phosphatase 109 U/L (40-110); Anion Gap 19 mmol/L (10-20); BUN (Urea Nitrogen) 16 mg/dL (8.4-25.7); Bilirubin, Total 0.6 mg/dL (0.2-1.2); Calc. Creatinine Clearance 0 mL/min (70-130); Calcium 9.4 mg/dL (7.8-10.44); Carbon Dioxide 21 mmol/L (23-31); Chloride 103 mmol/L (98-107); Estimated GFR 98; Globulin 3.5 g/dL (2.4-3.5); Glucose 167 mg/dL (80-115); Potassium 3.7 mmol/L (3.5-5.1); Protein, Total 7.7 g/dL (5.8-8.1); Sodium 139 mmol/L (136-145)
[2024-10-15 01:14] LABS: Troponin I Less than 0.010 ng/mL (< 0.028)
[2024-10-15 01:15] LABS: Bilirubin Negative (Negative); Blood, Urine Negative (Negative); CAUTI Indications for Culture Dysuria,urgency,freq; Clarity Clear (Clear); Glucose, Urine (Dipstick) 150 mg/dL (Negative); Ketone, Urine 10 mg/dL (Negative); Leukocyte Negative Leu/uL (Negative); Nitrite Negative (Negative); Protein, Urine (Dipstick) Negative (Neg-Trace); RBC/HPF 0-3 HPF (0-3); Specific Gravity, Urine 1.014 (1.002-1.036); Squamous Epithelial 0-3 HPF (0-3); Urobilinogen Normal mg/dL (Less than 2)
[2024-10-15 01:18] LABS: Anisocytosis MODERATE=16-30 cells HPF (0-5); Elliptocytes SLIGHT = 2-5 cells HPF (0-1); Platelet Adequacy Comment Platelets Normal; Polychromasia SLIGHT = 2-3 cells HPF (0-2)
[2024-10-15 01:19] LABS: Bacteria/HPF 1+ HPF (None Seen)
[2024-10-15 01:19] LABS: #Basophils 0.07 10x3/uL (0.0-0.2); %Basophils 0.7 % (0.0-1.0); %Lymphocytes 15.1 % (21.0-51.0); %Monocytes 6.9 % (0.0-10.0)
[2024-10-15 01:20] LABS: Urine Culture Reflex No No
[2024-10-15 06:59] VITALS: TEMP 99
[2024-10-15 08:45] VITALS: BMI 31.3
[2024-10-15] MEDS ORDERED: Insulin Lispro 100 UNIT/ML 10 ML VIAL SC PRN ×2 (09:15)
[2024-10-15] MEDS ORDERED: Ondansetron PF 4 MG/2 ML Vial IVP PRN (09:15)
[2024-10-15] MEDS ORDERED: Dextrose 50% Abboject 50 ML SYRINGE SLOW IVP PRN (09:15)
[2024-10-15] MEDS ORDERED: Glucagon 1 MG/ML KIT IM PRN (09:15)
[2024-10-15] MEDS ORDERED: Senokot S 8.6-50 MG TAB PO PRN (09:15)
[2024-10-15] MEDS ORDERED: Calcium Carbonate 500 MG ChewTAB PO PRN (09:15)
[2024-10-15] MEDS ORDERED: Ondansetron ODT 4 MG TAB PO PRN (09:15)
[2024-10-15] MEDS ORDERED: hydrALAZINE 20 MG/ML VIAL SLOW IVP PRN (09:15)
[2024-10-15] MEDS ORDERED: Dextrose 5% in Water 1,000 ML IV PRN (09:15)
[2024-10-15 10:01] LABS: Magnesium 1.7 mg/dL (1.6-2.6)
[2024-10-15 13:46] VITALS: BP 131/74
[2024-10-15] MEDS ORDERED: Meclizine HCl 25 MG TAB ONE (13:52)
[2024-10-15] MEDS: Meclizine HCl 25 MG TAB PO SCH (14:00)
[2024-10-15] MEDS ORDERED: Warfarin Sodium 2 MG TAB PO SCH ×2 (17:00)
[2024-10-15] MEDS ORDERED: Famotidine 20 MG TAB PO SCH (21:00)
[2024-10-15] MEDS ORDERED: Atorvastatin Calcium 40 MG TAB PO SCH (21:00)
[2024-10-15] MEDS ORDERED: Metoprolol Tartrate 25 MG TAB PO SCH (21:00)
[2024-10-16] MEDS ORDERED: Aspirin 81 mg Enteric Coated Tablet PO SCH (09:00)
[2024-10-17] MEDS ORDERED: Warfarin Sodium 5 MG TAB PO SCH (17:00)
== END 2024-10-15 17:01 | disposition left against medical advice (07) ==
LOC: ERS 00:14 → ERHOLD 04:29
PROVIDERS: ADMIT Student in an Organized Health Care Education/Training Program; ATTEND Student in an Organized Health Care Education/Training Program
DX: R42 Dizziness and giddiness (principal); I10 Essential (primary) hypertension; E78.5 Hyperlipidemia, unspecified; I47.10 Supraventricular tachycardia, unspecified; I48.20 Chronic atrial fibrillation, unspecified; E11.9 Type 2 diabetes mellitus without complications; Z79.84 Long term (current) use of oral hypoglycemic drugs; Z98.890 Other specified postprocedural states; Z90.49 Acquired absence of other specified parts of digestive tract; Z87.891 Personal history of nicotine dependence; Z79.899 Other long term (current) drug therapy
CPT/HCPCS: 70496; 70498; 70551; 71045; 80053; 81001; 82962; 83735; 84484; 85025; 85610; 85730; 93005; 94760; 99285; G0378; 36415; 36416